=== PATIENT | male | born 1995 | race Caucasian/White ===

== ENCOUNTER 2020-12-26 09:00 | Outpatient (RCR) | payer OTHER, SELFPAY ==
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
--- NOTE | 2020-11-01 22:33 | P.PNPS_ITS ---
TMS Daily Progress Note Daily TMS Progress Note Date of Service: 11/01/20 Week #: 1 Treatment #(06-08): 1 PHQ-9 Pre-Treatment (06-05): 23 PHQ-9 Most Recent (06-05): 23 Reviewed: TMS Tech Note Reviewed Verification: I have reviewed the TMS Satellite Tv Installer Note and agree with the contents. The patient remains a candidate to continue TMS treatment per pro tocol. beam mapping completed
--- NOTE | 2020-11-04 22:14 | HO.TMSDAILY2 ---
TMS Daily Progress Note Daily TMS Progress Note Date of Service: 11/04/20 Week #: 1 Treatment #(06-08): 2 PHQ-9 Pre-Treatment (06-05): 23 PHQ-9 Most Recent (06-05): 23 Reviewed: TMS Tech Note Reviewed Verification: I have reviewed the TMS Senior Buyer Planner Note and agree with the contents. The patient remains a candidate to continue TMS treatment per protocol.
--- NOTE | 2020-11-05 22:25 | HO.TMSDAILY2 ---
TMS Daily Progress Note Daily TMS Progress Note Date of Service: 11/05/20 Week #: 1 Treatment #(06-08): 3 PHQ-9 Pre-Treatment (06-05): 23 PHQ-9 Most Recent (06-05): 23 Reviewed: TMS Tech Note Reviewed Verification: I have reviewed the TMS Environmental Engineering Manager Note and agree with the contents. The patient remains a candidate to continue TMS treatment per protocol.
--- NOTE | 2020-11-06 22:11 | P.PNPS_ITS ---
TMS Daily Progress Note Daily TMS Progress Note Date of Service: 11/06/20 Week #: 1 Treatment #(06-08): 4 PHQ-9 Pre-Treatment (06-05): 23 PHQ-9 Most Recent (06-05): 23 Reviewed: TMS Tech Note Reviewed Verification: I have reviewed the TMS Inspector Firearms Note and agree with the contents. The patient remains a candidate to continue TMS treatment per pro tocol.
--- NOTE | 2020-11-07 23:04 | HO.TMSDAILY2 ---
TMS Daily Progress Note Daily TMS Progress Note Date of Service: 11/07/20 Week #: 1 Treatment #(06-08): 5 PHQ-9 Pre-Treatment (06-05): 23 PHQ-9 Most Recent (06-05): 23 Reviewed: TMS Tech Note Reviewed Verification: I have reviewed the TMS Human Resource Adviser Note and agree with the contents. The patient remains a candidate to continue TMS treatment per protocol.
--- NOTE | 2020-11-08 23:32 | P.PNPS_ITS ---
TMS Daily Progress Note Daily TMS Progress Note Date of Service: 11/08/20 Week #: 2 Treatment #(06-08): 6 PHQ-9 Pre-Treatment (06-05): 23 PHQ-9 Most Recent (06-05): 23 Reviewed: TMS Tech Note Reviewed Verification: I have reviewed the TMS Lining Maker Hand Note and agree with the contents. The patient remains a candidate to continue TMS treatment per pro tocol.
--- NOTE | 2020-11-13 18:02 | P.PNPS_ITS ---
TMS Daily Progress Note Daily TMS Progress Note Date of Service: 11/12/20 Week #: 2 Treatment #(06-08): 7 PHQ-9 Pre-Treatment (06-05): 23 PHQ-9 Most Recent (06-05): 23 Reviewed: TMS Tech Note Reviewed Verification: I have reviewed the TMS Supervisor General Note and agree with the contents. The patient remains a candidate to continue TMS treatment per pro tocol.
--- NOTE | 2020-11-13 18:03 | P.PNPS_ITS ---
TMS Daily Progress Note Daily TMS Progress Note Date of Service: 11/13/20 Week #: 2 Treatment #(06-08): 8 PHQ-9 Pre-Treatment (06-05): 23 PHQ-9 Most Recent (06-05): 23 Reviewed: TMS Tech Note Reviewed Verification: I have reviewed the TMS Precision Market Insights Note and agree with the contents. The patient remains a candidate to continue TMS treatment per pro tocol.
--- NOTE | 2020-11-14 18:04 | HO.TMSDAILY2 ---
TMS Daily Progress Note Daily TMS Progress Note Date of Service: 11/14/20 Week #: 2 Treatment #(06-08): 9 PHQ-9 Pre-Treatment (06-05): 23 PHQ-9 Most Recent (06-05): 23 Reviewed: TMS Tech Note Reviewed Verification: I have reviewed the TMS Lecturer Of Portuguese Note and agree with the contents. The patient remains a candidate to continue TMS treatment per protocol.
--- NOTE | 2020-11-15 23:55 | P.PNPS_ITS ---
TMS Daily Progress Note Daily TMS Progress Note Date of Service: 11/15/20 Week #: 2 Treatment #(06-08): 10 PHQ-9 Pre-Treatment (06-05): 23 PHQ-9 Most Recent (06-05): 23 Reviewed: TMS Tech Note Reviewed Verification: I have reviewed the TMS Tumbling Machine Operator Note and agree with the contents. The patient remains a candidate to continue TMS treatment per pr otocol.
--- NOTE | 2020-11-19 23:19 | HO.TMSDAILY2 ---
TMS Daily Progress Note Daily TMS Progress Note Date of Service: 11/19/20 Week #: 3 Treatment #(06-08): 11 PHQ-9 Pre-Treatment (06-05): 23 PHQ-9 Most Recent (06-05): 23 Reviewed: TMS Tech Note Reviewed Verification: I have reviewed the TMS Electric Car Operator Note and agree with the contents. The patient remains a candidate to continue TMS treatment per protocol.
--- NOTE | 2020-11-20 22:36 | HO.TMSDAILY2 ---
TMS Daily Progress Note Daily TMS Progress Note Date of Service: 11/20/20 Week #: 3 Treatment #(06-08): 12 PHQ-9 Pre-Treatment (06-05): 23 PHQ-9 Most Recent (06-05): 23 Reviewed: TMS Tech Note Reviewed Verification: I have reviewed the TMS Fabrication Specialist Note and agree with the contents. The patient remains a candidate to continue TMS treatment per protocol.
--- NOTE | 2020-11-21 22:18 | P.PNPS_ITS ---
TMS Daily Progress Note Daily TMS Progress Note Date of Service: 11/21/20 Week #: 3 Treatment #(06-08): 13 PHQ-9 Pre-Treatment (06-05): 23 PHQ-9 Most Recent (06-05): 23 Reviewed: TMS Tech Note Reviewed Verification: I have reviewed the TMS Pharmacist Technician Note and agree with the contents. The patient remains a candidate to continue TMS treatment per pr otocol.
--- NOTE | 2020-11-25 23:10 | P.PNPS_ITS ---
TMS Daily Progress Note Daily TMS Progress Note Date of Service: 11/25/20 Week #: 3 Treatment #(06-08): 14 PHQ-9 Pre-Treatment (06-05): 23 PHQ-9 Most Recent (06-05): 23 Reviewed: TMS Tech Note Reviewed Verification: I have reviewed the TMS Handle Machine Operator Note and agree with the contents. The patient remains a candidate to continue TMS treatment per pr otocol.
--- NOTE | 2020-11-26 23:08 | HO.TMSDAILY2 ---
TMS Daily Progress Note Daily TMS Progress Note Date of Service: 11/26/20 Week #: 3 Treatment #(06-08): 15 PHQ-9 Pre-Treatment (06-05): 23 PHQ-9 Most Recent (06-05): 23 Reviewed: TMS Tech Note Reviewed Verification: I have reviewed the TMS Resume Specialist Note and agree with the contents. The patient remains a candidate to continue TMS treatment per protocol.
--- NOTE | 2020-11-27 22:48 | HO.TMSDAILY2 ---
TMS Daily Progress Note Daily TMS Progress Note Date of Service: 11/27/20 Week #: 4 Treatment #(06-08): 16 PHQ-9 Pre-Treatment (06-05): 23 PHQ-9 Most Recent (06-05): 23 Reviewed: TMS Tech Note Reviewed Verification: I have reviewed the TMS Program Proposals Coordinator Note and agree with the contents. The patient remains a candidate to continue TMS treatment per protocol.
--- NOTE | 2020-11-28 22:59 | HO.TMSDAILY2 ---
TMS Daily Progress Note Daily TMS Progress Note Date of Service: 11/28/20 Week #: 4 Treatment #(06-08): 19 PHQ-9 Pre-Treatment (06-05): 23 PHQ-9 Most Recent (06-05): 23 Reviewed: TMS Tech Note Reviewed Verification: I have reviewed the TMS Multimedia Designer Note and agree with the contents. The patient remains a candidate to continue TMS treatment per protocol.
--- NOTE | 2020-11-29 17:00 | HO.TMSDAILY2 ---
TMS Daily Progress Note Daily TMS Progress Note Date of Service: 11/29/20 Week #: 4 Treatment #(06-08): 20 PHQ-9 Pre-Treatment (06-05): 23 PHQ-9 Most Recent (06-05): 23 Reviewed: TMS Tech Note Reviewed Verification: I have reviewed the TMS Community Service Officer Coordinator Note and agree with the contents. The patient remains a candidate to continue TMS treatment per protocol.
--- NOTE | 2020-12-02 23:11 | P.PNPS_ITS ---
TMS Daily Progress Note Daily TMS Progress Note Date of Service: 12/02/20 Week #: 5 Treatment #(06-08): 21 PHQ-9 Pre-Treatment (06-05): 23 PHQ-9 Most Recent (06-05): 23 Reviewed: TMS Tech Note Reviewed Verification: I have reviewed the TMS Tire Service Technician Note and agree with the contents. The patient remains a candidate to continue TMS treatment per pr otocol.
--- NOTE | 2020-12-03 23:26 | P.PNPS_ITS ---
TMS Daily Progress Note Daily TMS Progress Note Date of Service: 12/03/20 Week #: 4 Treatment #(06-08): 22 PHQ-9 Pre-Treatment (06-05): 23 PHQ-9 Most Recent (06-05): 23 Reviewed: TMS Tech Note Reviewed Verification: I have reviewed the TMS Auto Claim Representative Note and agree with the contents. The patient remains a candidate to continue TMS treatment per pr otocol.
--- NOTE | 2020-12-04 22:57 | HO.TMSDAILY2 ---
TMS Daily Progress Note Daily TMS Progress Note Date of Service: 12/04/20 Week #: 5 Treatment #(06-08): 23 PHQ-9 Pre-Treatment (06-05): 23 PHQ-9 Most Recent (06-05): 23 Reviewed: TMS Tech Note Reviewed Verification: I have reviewed the TMS Miniature Set Constructor Note and agree with the contents. The patient remains a candidate to continue TMS treatment per protocol.
--- NOTE | 2020-12-11 20:43 | P.PNPS_ITS ---
TMS Daily Progress Note Daily TMS Progress Note Date of Service: 12/05/20 Week #: 5 Treatment #(06-08): 25 late entry PHQ-9 Pre-Treatment (06-05): 23 PHQ-9 Most Recent (06-05): 23 Reviewed: TMS Tech Note Reviewed Verification: I have reviewed the TMS Alcohol And Drug Counselor Note and agree with the contents. The patient remains a candidate to continue TMS treatment per protocol.
--- NOTE | 2020-12-11 20:48 | P.PNPS_ITS ---
TMS Daily Progress Note Daily TMS Progress Note Date of Service: 12/10/20 Week #: 6 Treatment #(06-08): 26 PHQ-9 Pre-Treatment (06-05): 23 PHQ-9 Most Recent (06-05): 23 Reviewed: TMS Tech Note Reviewed Verification: I have reviewed the TMS Perinatal Educator Note and agree with the contents. The patient remains a candidate to continue TMS treatment per pr otocol.
--- NOTE | 2020-12-12 20:40 | HO.TMSDAILY2 ---
TMS Daily Progress Note Daily TMS Progress Note Date of Service: 12/05/20 Week #: 4 Treatment #(06-08): 24 for 12/05/20 PHQ-9 Pre-Treatment (06-05): 23 PHQ-9 Most Recent (06-05): 23 Reviewed: TMS Tech Note Reviewed Verification: I have reviewed the TMS Software Development Intern Note and agree with the contents. The patient remains a candidate to continue TMS treatment per protocol.
--- NOTE | 2020-12-12 20:45 | HO.TMSDAILY2 ---
TMS Daily Progress Note Daily TMS Progress Note Date of Service: 12/06/20 Week #: 5 Treatment #(06-08): 25 late entry PHQ-9 Pre-Treatment (06-05): 23 PHQ-9 Most Recent (06-05): 23 Reviewed: TMS Tech Note Reviewed Verification: I have reviewed the TMS Supervisor Publications Note and agree with the contents. The patient remains a candidate to continue TMS treatment per protocol.
--- NOTE | 2020-12-12 20:50 | HO.TMSDAILY2 ---
TMS Daily Progress Note Daily TMS Progress Note Date of Service: 12/13/20 Week #: 6 Treatment #(06-08): 28 PHQ-9 Pre-Treatment (06-05): 23 PHQ-9 Most Recent (06-05): 23 Reviewed: TMS Tech Note Reviewed Verification: I have reviewed the TMS Finisher Merchant Products Note and agree with the contents. The patient remains a candidate to continue TMS treatment per protocol.
--- NOTE | 2020-12-30 14:18 | P.PNPS_ITS ---
TMS Daily Progress Note Daily TMS Progress Note Date of Service: 12/26/20 Week #: 8 Treatment #(06-08): 28 PHQ-9 Pre-Treatment (06-05): 23 PHQ-9 Most Recent (06-05): 23 Reviewed: TMS Tech Note Reviewed Verification: I have reviewed the TMS Retail Account Specialist Note and agree with the contents. The patient remains a candidate to continue TMS treatment per pr otocol. Postdated note
--- NOTE | 2020-12-30 14:19 | P.PNPS_ITS ---
TMS Daily Progress Note Daily TMS Progress Note Date of Service: 12/25/20 Week #: 8 Treatment #(06-08): 35 PHQ-9 Pre-Treatment (06-05): 23 PHQ-9 Most Recent (06-05): 23 Reviewed: TMS Tech Note Reviewed Verification: I have reviewed the TMS Preschool Assistant Director Note and agree with the contents. The patient remains a candidate to continue TMS treatment per pr otocol. Postdated note.
--- NOTE | 2020-12-30 14:21 | P.PNPS_ITS ---
TMS Daily Progress Note Daily TMS Progress Note Date of Service: 12/30/20 Week #: 8 Treatment #(06-08): 35 PHQ-9 Pre-Treatment (06-05): 23 PHQ-9 Most Recent (06-05): 3 Reviewed: TMS Tech Note Reviewed Verification: I have reviewed the TMS Carpenter Packing Note and agree with the contents. The patient remains a candidate to continue TMS treatment per pro tocol. Postdated note
--- NOTE | 2020-12-30 14:22 | HO.TMSDAILY2 ---
TMS Daily Progress Note Daily TMS Progress Note Date of Service: 12/20/20 Week #: 8 Treatment #(06-08): 33 PHQ-9 Pre-Treatment (06-05): 23 PHQ-9 Most Recent (06-05): 3 Reviewed: TMS Tech Note Reviewed Verification: I have reviewed the TMS Record Label Internship Note and agree with the contents. The patient remains a candidate to continue TMS treatment per protocol. Postdated note
--- NOTE | 2020-12-30 14:25 | P.PNPS_ITS ---
TMS Daily Progress Note Daily TMS Progress Note Date of Service: 12/24/20 Week #: 8 Treatment #(06-08): 33 PHQ-9 Pre-Treatment (06-05): 23 PHQ-9 Most Recent (06-05): 3 Verification: I have reviewed the TMS Parts Counter Clerk Note and agree with the contents. The patient remains a candidate to continue TMS treatment per protocol.
--- NOTE | 2020-12-30 14:27 | P.PNPS_ITS ---
TMS Daily Progress Note Daily TMS Progress Note Date of Service: 12/18/20 Week #: 8 Treatment #(06-08): 32 PHQ-9 Pre-Treatment (06-05): 23 PHQ-9 Most Recent (06-05): 3 Reviewed: TMS Tech Note Reviewed Verification: I have reviewed the TMS Music Theory Professor Note and agree with the contents. The patient remains a candidate to continue TMS treatment per pr otocol. Postdated note.
--- NOTE | 2020-12-30 14:29 | P.PNPS_ITS ---
TMS Daily Progress Note Daily TMS Progress Note Date of Service: 12/18/20 Week #: 8 Treatment #(06-08): 32 PHQ-9 Pre-Treatment (06-05): 23 PHQ-9 Most Recent (06-05): 3 Reviewed: TMS Tech Note Reviewed Verification: I have reviewed the TMS Proposal Review Analyst Note and agree with the contents. The patient remains a candidate to continue TMS treatment per pro tocol. Postdated note
--- NOTE | 2020-12-30 14:31 | P.PNPS_ITS ---
TMS Daily Progress Note Daily TMS Progress Note Date of Service: 12/17/20 Week #: 7 Treatment #(06-08): 31 PHQ-9 Pre-Treatment (06-05): 23 PHQ-9 Most Recent (06-05): 3 Reviewed: TMS Tech Note Reviewed Verification: I have reviewed the TMS Warning Coordination Meteorologist Note and agree with the contents. The patient remains a candidate to continue TMS treatment per pro tocol. Postdated note.
--- NOTE | 2020-12-30 14:31 | P.PNPS_ITS ---
TMS Daily Progress Note Daily TMS Progress Note Date of Service: 12/16/20 Week #: 7 Treatment #(06-08): 30 PHQ-9 Pre-Treatment (06-05): 23 PHQ-9 Most Recent (06-05): 3 Reviewed: TMS Tech Note Reviewed Verification: I have reviewed the TMS Filter Tip Inspector Note and agree with the contents. The patient remains a candidate to continue TMS treatment per pro tocol. Postdated note.
== END 2020-12-27 14:54 | disposition home or self-care (01) ==
LOC: HO.PTMS 09:00
PROVIDERS: PCP Internal Medicine; Visit Provider Psychiatry & Neurology Psychiatry
DX: F33.2 Major depressive disorder, recurrent severe without psychotic features (principal); F41.1 Generalized anxiety disorder; F41.0 Panic disorder [episodic paroxysmal anxiety]
CPT/HCPCS: 90867; 90868

== ENCOUNTER 2022-08-26 14:06 | Outpatient (REF) | payer OTHER, SELFPAY ==
[2022-08-26 15:59] LABS: Iron 124 mcg/dL (45-160); Percent Iron Saturation 36 % (15-50); Total Iron Binding Capacity 344 mcg/dL (228-428); Unsaturated Iron Binding 220 ug/dL
[2022-08-26 16:22] LABS: Free T4 (Free Thyroxine) 0.84 ng/dL (0.71-1.85); Thyroid Stimulating Hormone 1.96 uIU/mL (0.32-4.0); Vitamin B12 524 pg/mL (200-900); Vitamin D 25-OH Total 17.5 ng/mL (>30)
== END 2022-08-26 14:07 | disposition home or self-care (01) ==
LOC: HO.LAB 14:06
PROVIDERS: PCP Nurse Practitioner Family; Visit Provider Nurse Practitioner Psychiatric/Mental Health
DX: F33.2 Major depressive disorder, recurrent severe without psychotic features (principal); R53.83 Other fatigue
CPT/HCPCS: 36415; 82306; 82607; 83540; 84439; 84443

== ENCOUNTER 2022-09-03 10:15 | Outpatient (RCR) | payer OTHER, SELFPAY ==
[2022-08-19 11:45] VITALS: BP 100/62; PULSE 76; TEMP 36.8
[2022-08-19 11:51] VITALS: BMI 24.3
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
--- NOTE | 2022-08-19 12:36 | PC.NURSE ---
Patient is a 27 year old trans-gendered male who was referred to [facility] by behavioral health unit at [facility] where patient was hospitalized d/t increased depression with SI to hang himself, denied plan or intent to follow through, and increased anxiety following a breakup with his partner. Patient reports increased use of Marijuana to cope, however patient stated he is trying to cut down his use thus has not been using as much since discharge from hospital. Patient is alert and oriented x4. Calm and cooperative. Presented with depressed mood and affect. Reports passive SI, just thoughts denied plans or intent to kill himself. Patient given a copy of his safety plan and I reviewed the plan with him. Stated hospitalization was helpful. Wants to work on his mental health at [facility]. Reports feelings of depression and low motivation. Medications reconciled with patient and d/c paperwork from [facility]. Patient stated he had a prescriber appointment 2 days after hospitalization thus Lamictal was increased to 100 mg daily. He reports he is taking a leave of absence from work to work on his mental health. 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
[2022-08-19 15:58] LABS: Amphetamine Screen Urine Not Detected (Not Detect); Barbiturates, Urine Not Detected (Not Detect); Benzodiazepines Screen Urine Not Detected (Not Detect); Cannabinoid Screen Urine POSITIVE (Not Detect); Cocaine Screen Urine Not Detected (Not Detect); Fentanyl, urine Not Detected (Not Detect); Opiate Screen Urine Not Detected (Not Detect); Phencyclidine Screen Urine Not Detected (Not Detect)
--- NOTE | 2022-08-20 14:58 | HO.PHP ---
Clients case was reviewed and opened today in treatment team.
--- NOTE | 2022-08-26 12:17 | P.PNPSP_ITS ---
Subjective Subjective Date of Service: 08/26/22 Reason For Visit: anxiety,MDD,borderline personality Medical Problems Affecting Mental Status: No Interim History: Continues with depressed mood. No SI, no safety concerns. Decreased energy level. Medication Compliance: Yes Side effects from medications: No Attending Groups: Yes Review of Systems Acute medical concerns: No Medical Review of Systems: unchanged Review of Systems Review of Systems Yes all other systems are reviewed and are negative Constitutional: Reports fatigue and Reports lethargy Endocrine: Reports fatigue Mental Status Exam Mental Status Exam Patient Appearance: Well Grooomed Patient Orientation: Person, Place, Time and Situation Level of Consciousness: Appropriate Patient Behavior: Appropriate Mood Description: Depressed Affect Description: Depressed Patient Cognition Impaired: No Ability to Follow Directions: Excellent Speech Pattern: Clear Memory Description: Intact Hallucinations: None Delusions: Not Present Thought Process: Intact Thought Content: positive for Intact Depressive Symptoms: Increased Anxiety, Loss of Int. in Activity and Increased Fatigue Judgement: Fair Diagnostics Vital Signs (24Hr): BMI result Body Mass Index 24.3 Assessment & Plan Assessment & Plan (1) Major depressive disorder, recurrent severe without psychotic features: Status: Acute Code(s): F33.2 - Major depressive disorder, recurrent severe without psychotic features Assessment and Plan: Continues with depressed mood. Decreased energy level. Finding himself exhausted when he goes home. Trying not to nap. Reports having difficulties with navigating relationships, difficulty finding acceptance from others as transgendered person. Has not been taking the propanolol 3 times daily, only using as needed, due to feeling tired. Satisfied with current medications. We discussed vitamin levels, checking TSH, iron level. He was in agreement with this. No SI, no safety concerns. (2) Generalized anxiety disorder with panic attacks: Status: Acute Code(s): F41.1 - Generalized anxiety disorder; F41.0 - Panic disorder [episodic paroxysmal anxiety] Plan 1. Continue with current [facility] plan of care. 2. Continue with medications as prescribed by outpatient provider. 3. Obtain lab work including vitamin-D, TSH, iron, vitamin-B. 4. Follow-up as per protocol. Patient educated on: diagnosis, medication risk/benefits and therapeutic strategies Informed Consent: understands Reason for contiued partial hosp. stay Substantial Risk for: harm to self, inability to function and rapid decompensation Certification I certify that partial hospital treatment is medically necessary due to the symptoms and problems resulting from the patient's mental illness and the failure to treat the patient at the partial hospital level of care would likely result in the patient requiring inpatient psychiatric care which could not be prevented at a less intensive level of care. Total time managing care of this patient today _20___ minutes. Discharge Plan Discharge Attending provider: Mahesh Haji Medications: No Action diphenhydramine HCl 50 mg Tablet 50 mg PO BEDTIME PRN (Reason: Insomnia) lamotrigine 25 mg Tablet 100 mg PO DAILY Patient Comments: Patient reports Lamictal was increased from 75 mg to 100 mg daily by his prescriber. propranolol 10 mg Tablet 10 mg PO TID testosterone cypionate 200 mg/mL oil 80 mg subcut QWEEK finasteride 5 mg tablet 1.25 mg PO DAILY escitalopram oxalate 20 mg tablet 20 mg PO DAILY
--- NOTE | 2022-09-03 13:32 | HO.PHPPROGNO ---
Subjective Subjective Date of Service: 09/03/22 Reason For Visit: anxiety,MDD,borderline personality Medical Problems Affecting Mental Status: No Interim History: Describes mood as ?good ?. Much improved depression and anxiety. States he feels ready for discharge from [facility] at this time. Satisfied with current medications. Plans to return to work full-time on Wednesday. No SI, no safety concerns. Medication Compliance: Yes Side effects from medications: No Attending Groups: Yes Review of Systems Acute medical concerns: No Medical Review of Systems: unchanged Review of Systems Review of Systems Yes all other systems are reviewed and are negative Constitutional: Reports no additional constitutional complaints Mental Status Exam Mental Status Exam Patient Appearance: Well Grooomed Patient Orientation: Person, Place, Time and Situation Level of Consciousness: Appropriate Patient Behavior: Appropriate Mood Description: Appropriate Affect Description: Appropriate Patient Cognition Impaired: No Ability to Follow Directions: Excellent Speech Pattern: Clear Memory Description: Intact Hallucinations: None Delusions: Not Present Thought Process: Intact Thought Content: positive for Intact Judgement: Good Diagnostics Vital Signs (24Hr): BMI result Body Mass Index 24.3 Assessment & Plan Assessment & Plan (1) Major depressive disorder, recurrent severe without psychotic features: Status: Acute Code(s): F33.2 - Major depressive disorder, recurrent severe without psychotic features Assessment and Plan: Describes mood as ?good ?. Much improved depression and anxiety. States he feels ready for discharge from [facility] at this time. Has found inpatient stay followed by a PHP helpful in improving mental health symptoms, feels it has been beneficial. Satisfied with current medications. Plans to return to work full-time on Wednesday. Plans to ask if he can be assigned tasks that are less taxing. Considering returning to school, not sure what to pursue in graduate school. No SI, no safety concerns. (2) Generalized anxiety disorder with panic attacks: Status: Acute Code(s): F41.1 - Generalized anxiety disorder; F41.0 - Panic disorder [episodic paroxysmal anxiety] (3) Borderline personality disorder: Status: Acute Code(s): F60.3 - Borderline personality disorder Plan 1. Patient appears stable for discharge from [facility] at this time. 2. Patient to follow-up with outpatient providers going forward. Patient educated on: diagnosis, medication risk/benefits and therapeutic strategies Reason for contiued partial hosp. stay Substantial Risk for: stable for discharge Certification I certify that partial hospital treatment is medically necessary due to the symptoms and problems resulting from the patient's mental illness and the failure to treat the patient at the partial hospital level of care would likely result in the patient requiring inpatient psychiatric care which could not be prevented at a less intensive level of care. Total time managing care of this patient today ___20_ minutes. Discharge Plan Discharge Attending provider: Mahesh Haji Medications: No Action diphenhydramine HCl 50 mg Tablet 50 mg PO BEDTIME PRN (Reason: Insomnia) lamotrigine 25 mg Tablet 100 mg PO DAILY Patient Comments: Patient reports Lamictal was increased from 75 mg to 100 mg daily by his prescriber. propranolol 10 mg Tablet 10 mg PO TID testosterone cypionate 200 mg/mL oil 80 mg subcut QWEEK finasteride 5 mg tablet 1.25 mg PO DAILY escitalopram oxalate 20 mg tablet 20 mg PO DAILY Stand Alone Forms: Patient Portal Discharge page Patient Education: Depression (DC)
== END 2022-09-03 23:59 | disposition home or self-care (01) ==
LOC: HO.PHPA 10:15
PROVIDERS: Nurse Practitioner Psychiatric/Mental Health; Visit Provider Psychiatry & Neurology Psychiatry
DX: F33.2 Major depressive disorder, recurrent severe without psychotic features (principal); F41.1 Generalized anxiety disorder; F41.0 Panic disorder [episodic paroxysmal anxiety]; F60.3 Borderline personality disorder; F64.0 Transsexualism; F12.20 Cannabis dependence, uncomplicated; Z79.899 Other long term (current) drug therapy
CPT/HCPCS: 80307; 90791; 90853